=== PATIENT | female | born 1950 | race Caucasian/White ===

== ENCOUNTER → 2017-11-11 | Outpatient (CLI) | payer MEDICARE, OTHER ==
[~2017-11-11] MED LIST: Acyclovir400 MG PO; Advil200 M1 PO; Aspirin EC81 MG PO; DHEA PO; ESTRTP VAG; MAGCIT300 PO; Multiple Vitam1 EAC1 PO; NAPR220 PO
[2017-11-14 14:09] LABS: LYME IGG/IGM AB <0.91 ISR (0.00-0.90)
== END | disposition home or self-care (01) ==
LOC: LAB SHORT 09:42 → LAB EV 09:42
PROVIDERS: Physician Assistant
DX: S00.96XA Insect bite (nonvenomous) of unspecified part of head, initial encounter (principal)
CPT/HCPCS: 86618

== ENCOUNTER → 2017-12-23 | Outpatient (CLI) | payer MEDICARE, OTHER | END | disposition home or self-care (01) | LOC: LAB SHORT 14:56 → LAB EV 14:56 | DX: R35.0 Frequency of micturition (principal) | CPT/HCPCS: 87086 ==

== ENCOUNTER → 2018-01-21 | Outpatient (CLI) | payer MEDICARE, OTHER | END | disposition home or self-care (01) | LOC: PLD 07:49 → LAB SHORT 07:49 | DX: N76.1 Subacute and chronic vaginitis (principal) | CPT/HCPCS: 88305; 88312 ==

== ENCOUNTER → 2018-07-14 | Outpatient (CLI) | payer MEDICARE, OTHER ==
[2018-07-14 13:15] LABS: Appearance, Urine Clear (Clear); Bilirubin, Urine Neg (Neg); Blood, Urine Neg (Neg); Color, Urine Yellow (P-Yellow); Glucose Qualitative, Urine Neg (Neg); Ketones, Urine Neg (Neg); Leukocyte Esterase, Urine Neg (Neg); Nitrite, Urine Neg (Neg); Protein, Urine Neg (Neg); Specific Gravity, Urine 1.005 (1.003-1.022); Urobilinogen, Urine NORM (Normal); pH, Urine 6.5 (5.0-8.0)
== END | disposition home or self-care (01) ==
LOC: LAB 12:37 → LAB SHORT 12:37
PROVIDERS: Obstetrics & Gynecology
DX: R35.0 Frequency of micturition (principal)
CPT/HCPCS: 81003

== ENCOUNTER 2022-02-16 19:44 | Emergency (ER) | payer MEDICARE, OTHER ==
[~2022-02-16] VITALS: Ht 170.2 cm; Wt 53.5 kg
== END 2022-02-16 23:43 | disposition home or self-care (01) ==
LOC: ER 19:44
DX: I82.811 Embolism and thrombosis of superficial veins of right lower extremity (principal); Z79.899 Other long term (current) drug therapy; Z79.82 Long term (current) use of aspirin; Z88.5 Allergy status to narcotic agent; Z88.8 Allergy status to other drugs, medicaments and biological substances
CPT/HCPCS: 93971

== ENCOUNTER 2022-10-17 09:21 | Day surgery (SDC) | payer MEDICARE, OTHER ==
[~2022-10-17] VITALS: Ht 167.6 cm; Wt 52.2 kg
[~2022-10-17 09:21] MED LIST changes: -Advil200 M1 PO; +IBUP200 PO
--- NOTE | 2022-10-17 09:55 | NUR ---
10/17/22 0955 Grace Garza CALL LIGHT WITHIN REACH. MAEGAN AT BEDSIDE. TETRACAINE IN AT 0940 AND LYNSEY AT 0943.
[2022-10-17 10:52] VITALS: BP 115/65
--- NOTE | 2022-10-17 11:14 | NUR ---
10/17/22 1114 Kenny Martinez IV REMOVED. SITE WNL.
== END 2022-10-17 11:08 | disposition home or self-care (01) ==
LOC: ORSCSDS 09:21
PROVIDERS: Ophthalmology
PROC: 08DJ3ZZ Extraction of Right Lens, Percutaneous Approach (ICD-10-PCS; principal; 2022-10-17 10:30)
DX: H25.13 Age-related nuclear cataract, bilateral (principal); Z79.82 Long term (current) use of aspirin; Z79.899 Other long term (current) drug therapy
CPT/HCPCS: J2001; J2250; J3010; J3301; J7040; V2632

== ENCOUNTER 2023-03-25 13:15 | Day surgery (SDC) | payer MEDICARE, OTHER ==
[~2023-03-25] VITALS: Ht 170.2 cm; Wt 51.1 kg
[~2023-03-25 13:15] MED LIST changes: +CALCIUM CITRAT250 MG; +CENTRUM SILVER1 EAC2; +MAGNESIUM250 M1
--- NOTE | 2023-03-25 13:47 | NUR ---
03/25/23 1347 Bibiana Jade CALL LIGHT WITHIN REACH. TETRACINE IN LEFT EYE AT 1346 AND MEGANETT IN AT 1347
[2023-03-25 14:57] VITALS: BP 114/77
== END 2023-03-25 15:14 | disposition home or self-care (01) ==
LOC: ORSCSDS 13:15
PROVIDERS: Ophthalmology
PROC: 08RK3JZ Replacement of Left Lens with Synthetic Substitute, Percutaneous Approach (ICD-10-PCS; principal; 2023-03-25 14:30)
DX: H25.12 Age-related nuclear cataract, left eye (principal); Z96.1 Presence of intraocular lens
CPT/HCPCS: J2250; J3010; J3301; J7040; V2632